=== PATIENT | female | born 1965 | race Caucasian/White ===

== ENCOUNTER 2019-07-09 06:14 | Inpatient (IN) ==
[2019-07-09] MEDS ORDERED: Acetaminophen IV 1,000 MG/100 ML INFUS..BTL IVPB ONE (07:05)
[2019-07-09] MEDS ORDERED: Ketorolac 30 MG/ML VIAL IVP ONE (07:06)
[2019-07-09] MEDS ORDERED: Morphine Sulfate 2 MG/ML SYRINGE IVP PRN (07:06)
[2019-07-09] MEDS ORDERED: Ondansetron 4 MG/2 ML VIAL IVP ONE (07:06)
[2019-07-09] MEDS ORDERED: CeFAZolin Syr 2,000MG/20 ML 2,000 MG/20 ML SYRINGE IVPB ONE (07:06)
[2019-07-09] MEDS ORDERED: Gabapentin 300 MG CAPSULE PO ONE (07:08)
[2019-07-09] MEDS ORDERED: Ringers Solution, Lactated 1,000 ML IVC SCH (07:15)
[2019-07-09] MEDS ORDERED: Lidocaine HCL 4 ML Topical Solution (Laryng-O-Jet Kit Sterile Pak) TP ONE (07:17)
[2019-07-09] MEDS ORDERED: *HR* Rocuronium Bromide 50 MG/5 ML VIAL ONE (07:17)
[2019-07-09] MEDS ORDERED: Lidocaine -MPF 2% 2 ML VIAL ONE (07:17)
[2019-07-09] MEDS ORDERED: Dexamethasone 4 MG/ML VIAL ONE (07:17)
[2019-07-09] MEDS ORDERED: *HR* Propofol 200 MG/20 ML VIAL IVP ONE (07:19)
[2019-07-09] MEDS ORDERED: *HR* Midazolam HCl 2 MG/2 ML VIAL ONE (07:19)
[2019-07-09] MEDS ORDERED: *HR* FentaNYL (PF) 100 MCG/2 ML VIAL ONE (07:19)
[2019-07-09] MEDS ORDERED: *HR* Remifentanil 1 MG VIAL IVP ONE (07:19)
[2019-07-09] MEDS ORDERED: Bacitracin 50,000 UNIT, Polymyxin B Sulfate 500,000 UNIT, Sodium Chloride IRRigation 1,... IR ONE (08:00)
[2019-07-09] MEDS ORDERED: EPHEDrine 50 MG/ML VIAL ONE (08:49)
[2019-07-09] MEDS ORDERED: *HR* Phenylephrine 10 MG/ML VIAL ONE (09:14)
[2019-07-09] MEDS ORDERED: Ketorolac 30 MG/ML VIAL ONE (10:45)
[2019-07-09] MEDS ORDERED: *HR* HYDROMORPHONE 2 MG/ML VIAL ONE (10:45)
[2019-07-09] MEDS ORDERED: Ondansetron 4 MG/2 ML VIAL IVP PRN (12:17)
[2019-07-09] MEDS ORDERED: Naloxone 0.4 MG/ML INJ IVP PRN (12:17)
[2019-07-09] MEDS ORDERED: Gabapentin 300 MG CAPSULE PO SCH ×2 (15:00)
[2019-07-09] MEDS: Gabapentin 400 MG CAPSULE PO SCH ×2 (15:25→20:58)
[2019-07-09] MEDS: *HR* OxyCODONE Immed Rel 5 MG TABLET PO PRN ×2 (16:23→22:05)
[2019-07-09] MEDS: Ringers Solution, Lactated 1,000 ML IVC SCH ×2 (17:06→23:27)
[2019-07-09] MEDS: *HR* LORazepam 1 MG TABLET PO SCH (20:58)
[2019-07-09] MEDS: Famotidine 20 MG TABLET PO SCH (20:58)
[2019-07-09] MEDS: BuPROPion XL (24 HR) 150 MG TABLET PO SCH (20:58)
[2019-07-09] MEDS: *HR* HYDROcodone/Acet 5/325 mg TABLET PO PRN (23:31)
[2019-07-10] MEDS: *HR* LORazepam 1 MG TABLET PO SCH ×2 (08:21→20:19)
[2019-07-10] MEDS: Cholecalciferol (D-3) 1,000 UNIT (25MCG) TABLET PO SCH (08:21)
[2019-07-10] MEDS: Gabapentin 400 MG CAPSULE PO SCH ×3 (08:21→20:17)
[2019-07-10] MEDS: hydroCHLOROthiazide 25 MG TABLET PO SCH (08:21)
[2019-07-10] MEDS: Loratadine 10 MG TABLET PO SCH (08:21)
[2019-07-10] MEDS: *HR* OxyCODONE Immed Rel 5 MG TABLET PO PRN ×2 (08:24→13:31)
[2019-07-10 09:12] LABS: Basophils % 0.2 %; Eosinophils % 0.1 %; Hematocrit 31.2 % (35.3-44.9); Immature Granulocytes % 0.5 % (0-4); Lymphocytes # 1.7 K/mcL (0.6-4.6); Lymphocytes % 9.6 %; Mean Corpuscular HGB Conc 32.1 g/dL (31.6-35.5); Mean Corpuscular Hemoglobin 31.5 pg (28.0-33.3); Mean Corpuscular Volume 98.4 fL (83.0-100.0); Mean Platelet Volume 9.7 fL (9.4-12.4); Monocytes # 1.4 K/mcL (0.0-1.3); Monocytes % 7.8 %; Platelet Count 247 K/mcL (140-400); Red Blood Count 3.17 M/mcL (3.82-4.97); Segmented Neutrophils % 81.8 %
[2019-07-10 09:14] LABS: Neutrophils # 14.2 K/mcL (1.6-8.9); White Blood Count 17.3 K/mcL (4.3-11.1)
[2019-07-10 09:20] LABS: BUN/Creatinine Ratio 14 (6-26); Blood Urea Nitrogen 11 mg/dL (6-20); Calcium 7.9 mg/dL (8.6-10.3); Carbon Dioxide 28 mEq/L (23-29); Chloride 96 mEq/L (98-107); Glucose 127 mg/dL (70-105); Osmolality,Calculated 277 (280-300); Potassium 3.8 mEq/L (3.5-5.1); Sodium 133 mEq/L (136-145); eGFR For African Americans > 60 (> 60); eGFR For Non-African Americans > 60 (> 60)
[2019-07-10] MEDS: Ringers Solution, Lactated 1,000 ML IVC SCH ×2 (11:28→17:13)
[2019-07-10] MEDS ORDERED: Albuterol 2.5 MG/3 ML NEBULIZER IH PRN (13:53)
[2019-07-10] MEDS ORDERED: Chloraseptic Spray 177 ML BOTTLE MM PRN (17:55)
[2019-07-10] MEDS: BuPROPion XL (24 HR) 150 MG TABLET PO SCH (20:19)
[2019-07-10] MEDS: Famotidine 20 MG TABLET PO SCH (20:19)
[2019-07-10] MEDS: *HR* HYDROcodone/Acet 5/325 mg TABLET PO PRN (20:21)
[2019-07-11] MEDS: Ringers Solution, Lactated 1,000 ML IVC SCH ×3 (03:24→21:25)
[2019-07-11] MEDS: *HR* OxyCODONE Immed Rel 5 MG TABLET PO PRN ×4 (06:05→21:24)
[2019-07-11 07:39] LABS: Basophils % 0.3 %; Eosinophils # 0.5 K/mcL (0.0-0.6); Eosinophils % 3.8 %; Hematocrit 29.8 % (35.3-44.9); Hemoglobin 9.5 g/dL (11.5-15.4); Immature Granulocytes % 0.7 % (0-4); Lymphocytes # 2.6 K/mcL (0.6-4.6); Lymphocytes % 21.8 %; Mean Corpuscular HGB Conc 31.9 g/dL (31.6-35.5); Mean Corpuscular Volume 97.4 fL (83.0-100.0); Mean Platelet Volume 10.2 fL (9.4-12.4); Monocytes # 1.2 K/mcL (0.0-1.3); Monocytes % 10.1 %; Neutrophils # 7.4 K/mcL (1.6-8.9); Platelet Count 231 K/mcL (140-400); Red Blood Count 3.06 M/mcL (3.82-4.97); Red Cell Distribution Width 14.4 % (11.5-14.5); Segmented Neutrophils % 63.3 %; White Blood Count 11.7 K/mcL (4.3-11.1)
[2019-07-11] MEDS: Gabapentin 400 MG CAPSULE PO SCH ×3 (08:41→21:24)
[2019-07-11] MEDS: *HR* LORazepam 1 MG TABLET PO SCH ×2 (08:41→21:24)
[2019-07-11] MEDS: Cholecalciferol (D-3) 1,000 UNIT (25MCG) TABLET PO SCH (08:41)
[2019-07-11] MEDS: hydroCHLOROthiazide 25 MG TABLET PO SCH (08:41)
[2019-07-11] MEDS: Loratadine 10 MG TABLET PO SCH (08:41)
[2019-07-11 09:03] LABS: BUN/Creatinine Ratio 17 (6-26); Blood Urea Nitrogen 14 mg/dL (6-20); Calcium 8.1 mg/dL (8.6-10.3); Carbon Dioxide 29 mEq/L (23-29); Chloride 101 mEq/L (98-107); Glucose 98 mg/dL (70-105); Osmolality,Calculated 280 (280-300); Potassium 3.9 mEq/L (3.5-5.1); Sodium 135 mEq/L (136-145); eGFR For African Americans > 60 (> 60); eGFR For Non-African Americans > 60 (> 60)
[2019-07-11] MEDS: Famotidine 20 MG TABLET PO SCH (21:24)
[2019-07-11] MEDS: BuPROPion XL (24 HR) 150 MG TABLET PO SCH (21:24)
[2019-07-12] MEDS ORDERED: 0.9 % Sodium Chloride 500 ML IVC ONE (03:26)
[2019-07-12] MEDS: *HR* HYDROcodone/Acet 5/325 mg TABLET PO PRN (04:30)
[2019-07-12] MEDS: *HR* OxyCODONE Immed Rel 5 MG TABLET PO PRN ×4 (06:32→22:37)
[2019-07-12] MEDS: Cholecalciferol (D-3) 1,000 UNIT (25MCG) TABLET PO SCH (08:47)
[2019-07-12] MEDS: hydroCHLOROthiazide 25 MG TABLET PO SCH (08:47)
[2019-07-12] MEDS: *HR* LORazepam 1 MG TABLET PO SCH ×2 (08:47→20:02)
[2019-07-12] MEDS: Loratadine 10 MG TABLET PO SCH (08:48)
[2019-07-12] MEDS: Gabapentin 400 MG CAPSULE PO SCH ×3 (08:48→20:02)
[2019-07-12] MEDS: Famotidine 20 MG TABLET PO SCH (20:02)
[2019-07-12] MEDS: BuPROPion XL (24 HR) 150 MG TABLET PO SCH (20:02)
[2019-07-13] MEDS: *HR* OxyCODONE Immed Rel 5 MG TABLET PO PRN ×3 (05:24→20:10)
[2019-07-13] MEDS: hydroCHLOROthiazide 25 MG TABLET PO SCH (08:22)
[2019-07-13] MEDS: Loratadine 10 MG TABLET PO SCH (08:22)
[2019-07-13] MEDS: Cholecalciferol (D-3) 1,000 UNIT (25MCG) TABLET PO SCH (08:22)
[2019-07-13] MEDS: *HR* LORazepam 1 MG TABLET PO SCH ×2 (08:23→20:10)
[2019-07-13] MEDS: Gabapentin 400 MG CAPSULE PO SCH ×3 (08:23→20:10)
[2019-07-13] MEDS: *HR* HYDROcodone/Acet 5/325 mg TABLET PO PRN ×2 (08:29→16:41)
[2019-07-13] MEDS: BuPROPion XL (24 HR) 150 MG TABLET PO SCH (20:10)
[2019-07-13] MEDS: Famotidine 20 MG TABLET PO SCH (20:11)
[2019-07-14] MEDS: *HR* OxyCODONE Immed Rel 5 MG TABLET PO PRN ×2 (04:42→13:13)
[2019-07-14] MEDS ORDERED: Lidocaine -MPF 4% 5 ML AMPUL ONE (07:25)
[2019-07-14] MEDS ORDERED: Ondansetron 4 MG/2 ML VIAL ONE (07:25)
[2019-07-14] MEDS ORDERED: Dexamethasone 4 MG/ML VIAL ONE (07:25)
[2019-07-14] MEDS ORDERED: *HR* Succinylcholine 200 MG/10 ML VIAL IVP ONE (07:25)
[2019-07-14] MEDS ORDERED: *HR* Phenylephrine 10 MG/ML VIAL ONE (07:25)
[2019-07-14] MEDS ORDERED: Lidocaine -MPF 2% 2 ML VIAL ONE (07:25)
[2019-07-14] MEDS ORDERED: *HR* Propofol 200 MG/20 ML VIAL IVP ONE (07:26)
[2019-07-14] MEDS ORDERED: *HR* FentaNYL (PF) 100 MCG/2 ML VIAL ONE (07:36)
[2019-07-14] MEDS ORDERED: *HR* Remifentanil 1 MG VIAL IVP ONE (07:38)
[2019-07-14] MEDS ORDERED: Acetaminophen IV 1,000 MG/100 ML INFUS..BTL ONE (07:40)
[2019-07-14] MEDS ORDERED: Famotidine 20 MG/2 ML VIAL ONE (07:40)
[2019-07-14 07:57] LABS: Hematocrit 30.7 % (35.3-44.9); Hemoglobin 10.2 g/dL (11.5-15.4)
[2019-07-14] MEDS ORDERED: Bacitracin 50,000 UNIT, Polymyxin B Sulfate 500,000 UNIT, Sodium Chloride IRRigation 1,... IR ONE (08:00)
[2019-07-14] MEDS ORDERED: Ondansetron 4 MG/2 ML VIAL IVP PRN (12:18)
[2019-07-14] MEDS ORDERED: Acetaminophen 325 MG TABLET PO PRN (12:18)
[2019-07-14] MEDS ORDERED: Ringers Solution, Lactated 1,000 ML IVC SCH (12:18)
[2019-07-14] MEDS ORDERED: Naloxone 0.4 MG/ML INJ IVP PRN (12:18)
[2019-07-14] MEDS: *HR* HYDROcodone/Acet 5/325 mg TABLET PO PRN ×2 (14:51→20:40)
[2019-07-14] MEDS ORDERED: Albuterol 2.5 MG/3 ML NEBULIZER IH PRN (18:53)
[2019-07-14] MEDS ORDERED: Chloraseptic Spray 177 ML BOTTLE MM PRN (18:55)
[2019-07-14] MEDS ORDERED: *HR* LORazepam 1 MG TABLET PO PRN (18:59)
[2019-07-14] MEDS: Gabapentin 400 MG CAPSULE PO SCH (20:40)
[2019-07-14] MEDS ORDERED: Famotidine 20 MG TABLET PO SCH (21:00)
[2019-07-14] MEDS ORDERED: BuPROPion XL (24 HR) 150 MG TABLET PO SCH (21:00)
[2019-07-15] MEDS ORDERED: Loratadine 10 MG TABLET PO SCH (09:00)
[2019-07-15] MEDS ORDERED: Cholecalciferol (D-3) 1,000 UNIT (25MCG) TABLET PO SCH (09:00)
[2019-07-15] MEDS ORDERED: hydroCHLOROthiazide 25 MG TABLET PO SCH (09:00)
[2019-07-15] MEDS: Gabapentin 400 MG CAPSULE PO SCH ×2 (09:14→14:55)
[2019-07-15] MEDS: *HR* OxyCODONE Immed Rel 5 MG TABLET PO PRN ×2 (09:14→17:03)
[2019-07-15 15:49] VITALS: BP 134/75
== END 2019-07-15 18:24 | DRG 304 ==
LOC: SAMDAY 06:14 → 3NENU 13:05
PROVIDERS: ADMIT Orthopaedic Surgery Orthopaedic Surgery of the Spine; ATTEND Orthopaedic Surgery Orthopaedic Surgery of the Spine

== ENCOUNTER 2019-10-22 06:50 | Inpatient (IN) ==
[2019-10-22] MEDS ORDERED: *HR* FentaNYL (PF) 100 MCG/2 ML VIAL ONE (06:54)
[2019-10-22] MEDS ORDERED: *HR* Propofol 200 MG/20 ML VIAL IVP ONE (06:54)
[2019-10-22] MEDS ORDERED: *HR* Midazolam HCl 2 MG/2 ML VIAL ONE (06:54)
[2019-10-22] MEDS ORDERED: Lidocaine -MPF 2% 2 ML VIAL ONE (06:56)
[2019-10-22] MEDS ORDERED: Dexamethasone 4 MG/ML VIAL ONE (06:57)
[2019-10-22] MEDS ORDERED: Ondansetron 4 MG/2 ML VIAL ONE (06:57)
[2019-10-22] MEDS ORDERED: *HR* Succinylcholine 200 MG/10 ML VIAL IVP ONE (07:00)
[2019-10-22] MEDS ORDERED: Famotidine 20 MG/2 ML VIAL IVP ONE (07:00)
[2019-10-22] MEDS ORDERED: Gabapentin 300 MG CAPSULE PO ONE (07:00)
[2019-10-22] MEDS ORDERED: *HR* Rocuronium Bromide 50 MG/5 ML VIAL ONE ×2 (07:02→10:12)
[2019-10-22] MEDS ORDERED: CeFAZolin Syr 2,000MG/20 ML 2,000 MG/20 ML SYRINGE IVPB ONE (07:12)
[2019-10-22] MEDS ORDERED: *HR* Labetalol 20 MG/4 ML SYRINGE IVP PRN (07:13)
[2019-10-22] MEDS ORDERED: *HR* Promethazine 25 MG/ML VIAL IVP PRN (07:13)
[2019-10-22] MEDS ORDERED: Ondansetron 4 MG/2 ML VIAL IVP PRN ×2 (07:13→12:02)
[2019-10-22] MEDS ORDERED: Ringers Solution, Lactated 1,000 ML IVC SCH (07:15)
[2019-10-22] MEDS ORDERED: *HR* Methadone 10 MG TABLET PO ONE (07:22)
[2019-10-22] MEDS ORDERED: Bacitracin 50,000 UNIT, Polymyxin B Sulfate 500,000 UNIT, Sodium Chloride IRRigation 1,... IR ONE (08:15)
[2019-10-22] MEDS ORDERED: *HR* PHENYLEPHRINE 1,000 MCG/10 ML SYRINGE IVP ONE ×2 (08:43→09:48)
[2019-10-22] MEDS ORDERED: *HR* HYDROMORPHONE 2 MG/ML VIAL ONE (10:08)
[2019-10-22] MEDS: *HR* HYDROmorphone (PF) 1 MG/ML SYRINGE IVP PRN ×4 (11:05→11:20)
[2019-10-22] MEDS ORDERED: Acetaminophen 325 MG TABLET PO PRN (12:02)
[2019-10-22] MEDS ORDERED: Naloxone 0.4 MG/ML INJ IVP PRN (12:02)
[2019-10-22] MEDS: *HR* HYDROcodone/Acet 5/325 mg TABLET PO PRN ×2 (15:05→21:08)
[2019-10-22] MEDS: Gabapentin 400 MG CAPSULE PO SCH ×2 (15:05→21:08)
[2019-10-22] MEDS: ceFAZolin 2,000 MG in 0.9 % Sodium Chloride 100 ML IVPB SCH ×2 (15:48→23:37)
[2019-10-22] MEDS: Ringers Solution, Lactated 1,000 ML IVC SCH (15:49)
[2019-10-22] MEDS: BuPROPion XL (24 HR) 150 MG TABLET PO SCH (21:08)
[2019-10-22] MEDS: Famotidine 20 MG TABLET PO SCH (21:09)
[2019-10-22] MEDS: traZODone 50 MG TABLET PO SCH (21:09)
[2019-10-22] MEDS: *HR* LORazepam 1 MG TABLET PO SCH (21:09)
[2019-10-23] MEDS: Ringers Solution, Lactated 1,000 ML IVC SCH (04:25)
[2019-10-23] MEDS: *HR* HYDROcodone/Acet 5/325 mg TABLET PO PRN (04:27)
[2019-10-23] MEDS: *HR* OxyCODONE Immed Rel 5 MG TABLET PO PRN ×3 (06:02→18:27)
[2019-10-23] MEDS: Gabapentin 400 MG CAPSULE PO SCH ×3 (10:13→20:05)
[2019-10-23] MEDS: hydroCHLOROthiazide 25 MG TABLET PO SCH (10:13)
[2019-10-23] MEDS: *HR* LORazepam 1 MG TABLET PO SCH ×2 (10:14→20:05)
[2019-10-23] MEDS: Loratadine 10 MG TABLET PO SCH (10:14)
[2019-10-23] MEDS: traZODone 50 MG TABLET PO SCH (20:05)
[2019-10-23] MEDS: BuPROPion XL (24 HR) 150 MG TABLET PO SCH (20:05)
[2019-10-23] MEDS: Famotidine 20 MG TABLET PO SCH (20:05)
[2019-10-24] MEDS: *HR* OxyCODONE Immed Rel 5 MG TABLET PO PRN (03:35)
[2019-10-24] MEDS: hydroCHLOROthiazide 25 MG TABLET PO SCH (08:45)
[2019-10-24] MEDS: Loratadine 10 MG TABLET PO SCH (08:45)
[2019-10-24] MEDS: Gabapentin 400 MG CAPSULE PO SCH (08:45)
[2019-10-24] MEDS: *HR* HYDROcodone/Acet 5/325 mg TABLET PO PRN (08:45)
[2019-10-24] MEDS: *HR* LORazepam 1 MG TABLET PO SCH ×2 (08:45→20:31)
[2019-10-24] MEDS ORDERED: *HR* OxyCODONE Immed Rel 5 MG TABLET PO PRN ×2 (12:38→15:25)
[2019-10-24] MEDS: Acetaminophen 325 MG TABLET PO SCH ×2 (14:13→18:45)
[2019-10-24] MEDS: Gabapentin 300 MG CAPSULE PO SCH ×2 (14:14→20:31)
[2019-10-24 15:58] LABS: Basophils % 0.4 %; Eosinophils # 0.3 K/mcL (0.0-0.6); Eosinophils % 2.9 %; Hematocrit 33.9 % (35.3-44.9); Hemoglobin 10.8 g/dL (11.5-15.4); Immature Granulocytes % 0.6 % (0-4); Mean Corpuscular HGB Conc 31.9 g/dL (31.6-35.5); Mean Corpuscular Volume 94.2 fL (83.0-100.0); Mean Platelet Volume 9.5 fL (9.4-12.4); Monocytes # 1.3 K/mcL (0.0-1.3); Monocytes % 13.2 %; Neutrophils # 6.3 K/mcL (1.6-8.9); Platelet Count 284 K/mcL (140-400); Red Cell Distribution Width 13.4 % (11.5-14.5); Segmented Neutrophils % 62.9 %
[2019-10-24 16:17] LABS: BUN/Creatinine Ratio 11 (6-26); Blood Urea Nitrogen 10 mg/dL (6-20); Calcium 8.5 mg/dL (8.6-10.3); Carbon Dioxide 28 mEq/L (23-29); Chloride 100 mEq/L (98-107); Glucose 99 mg/dL (70-105); Osmolality,Calculated 273 (280-300); Potassium 3.4 mEq/L (3.5-5.1); Sodium 132 mEq/L (136-145); eGFR For African Americans > 60 (> 60); eGFR For Non-African Americans > 60 (> 60)
[2019-10-24] MEDS: traZODone 50 MG TABLET PO SCH (20:32)
[2019-10-24] MEDS: Famotidine 20 MG TABLET PO SCH (20:32)
[2019-10-24] MEDS: BuPROPion XL (24 HR) 150 MG TABLET PO SCH (20:32)
[2019-10-25] MEDS: Acetaminophen 325 MG TABLET PO SCH ×3 (00:38→11:42)
[2019-10-25 07:37] VITALS: BP 95/63
[2019-10-25] MEDS ORDERED: Cholecalciferol (D-3) 1,000 UNIT (25MCG) TABLET PO SCH (09:00)
[2019-10-25] MEDS: Gabapentin 300 MG CAPSULE PO SCH (09:42)
[2019-10-25] MEDS: Loratadine 10 MG TABLET PO SCH (09:43)
[2019-10-25] MEDS: hydroCHLOROthiazide 25 MG TABLET PO SCH (09:48)
[2019-10-25] MEDS: *HR* LORazepam 1 MG TABLET PO SCH (09:48)
== END 2019-10-25 12:00 | disposition home or self-care (01) | DRG 304 ==
LOC: SAMDAY 06:50 → 3NENU 07:50
PROVIDERS: ADMIT Orthopaedic Surgery Orthopaedic Surgery of the Spine; ATTEND Orthopaedic Surgery Orthopaedic Surgery of the Spine